=== PATIENT | male | born 1960 | race Caucasian/White ===

== ENCOUNTER 2016-10-27 08:24 | Day surgery (SDC) | payer MEDICARE ==
[~2016-10-27 08:24] MED LIST: FENTANYL 250 MCG/5 ML AMP IV PRN; LACTATED RINGERS 1,000 ML IV SCH; MIDAZOLAM HCL 5 MG/5 ML VIAL IV PRN
[2016-10-27] MEDS ORDERED: IV START KIT ONE (08:29)
[2016-10-27] MEDS ORDERED: MIDAZOLAM HCL 5 MG/5 ML VIAL ONE (09:04)
[2016-10-27] MEDS ORDERED: FENTANYL 5 ML ONE (09:04)
--- NOTE | 2016-10-31 09:43 | SURGPATH ---
[facility] [address] [place] [id number] Patient Name: BERNIE MIKE MR#: [id number] : 1960 Gender: M Specimen #: [id number] Collected: 10/27/2016 Received: 10/29/2016 Reported: 10/31/2016 Submitting Phys: DEA SOMMERS Copy To Phys: ALEJANDRA CUELLO [facility] Clinical History / Pre-Operative Diagnosis: SURVEILLANCE; WEIGHT LOSS; LLQ PAIN; FAMILY HISTORY OF COLON POLYPS AND CA Specimen Source / Surgical Procedure Performed: #1-SIGMOID POLYP AT 30 CM; #2-SIGMOID POLYP AT 15 CM Interpretation: 1. SIGMOID POLYP AT 30 CM, POLYPECTOMY: - TUBULAR ADENOMA 2. SIGMOID POLYP AT 15 CM, POLYPECTOMY: - HYPERPLASTIC POLYP Electronically Signed Out Chintan Kunz M.D. Gross Description: #1 The specimen is received in a formalin filled container labeled with the patient's name and "sigmoid polyp at 30 cm". A nodular, polypoid, red-powell biopsy is 0.7 x 0.5 x 0.5 cm. Bisected. Totally embedded in cassette #1. #2 The specimen is received in a formalin filled container labeled with the patient's name and "sigmoid polyp at 15 cm". A single pale hunter biopsy is 0.3 cm. Totally embedded in cassette #2. Osmel العراقي PKerry Microscopic Description: 1. The sections show colonic mucosa exhibiting adenomatous change with a tubular architectural pattern. The changes are characterized by nuclear stratification and hyperchromasia with increased mitotic activity. High-grade dysplasia is not identified. 2. The sections show colonic mucosa exhibiting hyperplastic changes without adenomatous features. 1: 34726 2: 28731 D12.5 K62.1
== END 2016-10-27 10:11 | disposition home or self-care (01) ==
LOC: SDC 08:24
PROVIDERS: ATTEND Internal Medicine Gastroenterology
PROC: 0DBN8ZX Excision of Sigmoid Colon, Via Natural or Artificial Opening Endoscopic, Diagnostic (ICD-10-PCS; principal; 2016-10-27)
PROC: 0DBN8ZX Excision of Sigmoid Colon, Via Natural or Artificial Opening Endoscopic, Diagnostic (ICD-10-PCS; 2016-10-27)
DX: Z12.11 Encounter for screening for malignant neoplasm of colon (principal); D12.5 Benign neoplasm of sigmoid colon; K57.30 Diverticulosis of large intestine without perforation or abscess without bleeding; Z80.0 Family history of malignant neoplasm of digestive organs; E78.5 Hyperlipidemia, unspecified; Z72.0 Tobacco use
CPT/HCPCS: 45385; J3010; J2250; J7120